=== PATIENT | female | born 1970 | race Caucasian/White ===

== ENCOUNTER 2018-09-27 20:29 | Emergency (ER) | payer BC ==
[~2018-09-27] VITALS: Ht 170.1 cm; Wt 79.4 kg
[2018-09-27] MEDS ORDERED: B121000 MCG/1 IM (20:35)
[2018-09-27] MEDS ORDERED: PHENTERMINE H37.5 M3 PO (20:35)
[2018-09-27] MEDS ORDERED: VOLTAREN100 GM T (21:33)
[2018-09-27] MEDS ORDERED: BENADRYL25 M2 PO (22:43)
[2018-09-27] MEDS ORDERED: PREDNISONE10 MG PO (22:43)
== END 2018-09-27 23:56 | disposition left against medical advice (07) ==
LOC: ED 20:29
DX: R53.1 Weakness (principal); M25.511 Pain in right shoulder; Z88.8 Allergy status to other drugs, medicaments and biological substances; Z79.899 Other long term (current) drug therapy; X50.3XXA Overexertion from repetitive movements, initial encounter; Y93.89 Activity, other specified; Y92.89 Other specified places as the place of occurrence of the external cause; Y99.8 Other external cause status

== ENCOUNTER 2018-09-28 12:01 | Emergency (ER) | payer BC ==
[~2018-09-28] VITALS: Wt 79.4 kg
[~2018-09-28 12:01] MED LIST: B121000 MCG/1 IM; BENADRYL25 M2 PO; PHENTERMINE H37.5 M3 PO; PREDNISONE10 MG PO; VOLTAREN100 GM T
== END 2018-09-28 17:25 | disposition left against medical advice (07) ==
LOC: ED 12:01
DX: M54.2 Cervicalgia (principal); R53.1 Weakness; M25.511 Pain in right shoulder; Z91.041 Radiographic dye allergy status; Z88.2 Allergy status to sulfonamides; Z88.8 Allergy status to other drugs, medicaments and biological substances; Z79.899 Other long term (current) drug therapy

== ENCOUNTER → 2021-07-01 | Outpatient (CLI) | payer BC | END | disposition home or self-care (01) | LOC: LAB 11:53 | PROVIDERS: ATTEND Internal Medicine | DX: R53.82 Chronic fatigue, unspecified (principal); R97.0 Elevated carcinoembryonic antigen [CEA]; R97.8 Other abnormal tumor markers; R97.1 Elevated cancer antigen 125 [CA 125]; R76.0 Raised antibody titer; E60 Dietary zinc deficiency ==

== ENCOUNTER → 2021-12-15 | Outpatient (CLI) | payer BC ==
[2021-12-15 14:48] LABS: BASO % 0.5 % (0.0-1.0); EOS # 0.3 10*3/uL (0.0-0.4); EOS % 3.3 % (1.0-4.0); HEMATOCRIT 41.8 % (37.0-47.0); LYMPH % 23.5 % (27.0-41.0); MEAN CELL VOLUME 93.1 fl (81.0-99.0); MEAN CORPUSCULAR HGB 30.3 pg (27.0-31.0); MEAN CORPUSCULAR HGB CONC 32.5 g/dl (33.0-37.0); MEAN PLATELET VOLUME 8.9 fl (9.6-12.3); MONO # 0.7 10*3/uL (0.1-1.0); MONO % 8.6 % (3.0-9.0); NEUT # 5.5 10*3/uL (2.3-7.9); NEUT % 63.9 % (47.0-73.0); PLATELET COUNT AUTOMATED 397 10*3/uL (130-400); RED BLOOD COUNT 4.49 10*6/uL (4.10-5.10); RED CELL DISTRI WIDTH 13.6 % (0-14.5); WHITE BLOOD COUNT 8.6 10*3/uL (4.8-10.8)
[2021-12-15 15:10] LABS: IRON 62 ug/dL (50-170)
[2021-12-15 16:07] LABS: FERRITIN 13.7 ng/mL (10.0-291.0)
[2021-12-16 12:07] LABS: ANTIPARIETAL CELL ANTIBODY 19.5 Units (0.0-20.0)
[2021-12-16 15:07] LABS: t-TRANSGLUTAMINASE (tTG) IGA <2 U/mL (0-3); t-TRANSGLUTAMINASE (tTG) IgG <2 U/mL (0-5)
[2021-12-18 16:07] LABS: INTRINSIC FACTOR ABS, SERUM 0.9 AU/mL (0.0-1.1)
[2021-12-22 18:06] LABS: DQ2 Negative (.); DQ8 Negative (.)
== END | disposition home or self-care (01) ==
LOC: LAB 14:05
PROVIDERS: ATTEND Internal Medicine
DX: D64.9 Anemia, unspecified (principal)

== ENCOUNTER → 2022-04-29 | Outpatient (CLI) | payer BC ==
[2022-04-29 13:40] LABS: BASO # 0.1 10*3/uL (0.0-0.1); BASO % 0.8 % (0.0-1.0); EOS # 0.4 10*3/uL (0.0-0.4); EOS % 5.7 % (1.0-4.0); LYMPH # 1.9 10*3/uL (1.3-4.4); LYMPH % 23.8 % (27.0-41.0); MEAN CELL VOLUME 92.1 fl (81.0-99.0); MEAN CORPUSCULAR HGB CONC 32.6 g/dl (33.0-37.0); MEAN PLATELET VOLUME 9.4 fl (9.6-12.3); MONO # 0.6 10*3/uL (0.1-1.0); MONO % 7.7 % (3.0-9.0); NEUT # 4.8 10*3/uL (2.3-7.9); NEUT % 61.6 % (47.0-73.0); PLATELET COUNT AUTOMATED 467 10*3/uL (130-400); RED BLOOD COUNT 4.56 10*6/uL (4.10-5.10); RED CELL DISTRI WIDTH 13.7 % (0-14.5); WHITE BLOOD COUNT 7.8 10*3/uL (4.8-10.8)
[2022-04-29 14:00] LABS: ALKALINE PHOSPHATASE 82 U/L (46-116); BUN 13 mg/dl (9-23); CHLORIDE 104 mmol/L (98-107); FREE T4 1.16 ng/dl (0.89-1.76); POTASSIUM 4.1 mmol/L (3.4-5.1); SGPT/ALT 21 U/L (10-49); THYROID STIM HORMONE (HS) 1.559 uIU/ml (0.550-4.780); TOTAL PROTEIN 7.3 gm/dL (6.0-8.0)
[2022-04-29 14:44] LABS: VITAMIN D, 25-HYDROXY 21.8 ng/mL (30-100)
[2022-04-30 08:07] LABS: THYROID PEROXIDASE (TPO) AB 45 IU/mL (0-34)
[2022-04-30 22:06] LABS: THYROGLOBULIN ANTIBODY <1.0 IU/mL (0.0-0.9)
[2022-05-01 01:06] LABS: INSULIN-LIKE GROWTH FACTOR-1 129 ng/mL (70-225)
[2022-05-01 02:06] LABS: IGF BINDING PROTEIN-3 3655 ug/L (2343-5612)
[2022-05-05 19:06] LABS: TESTOSTERONE FREE, (DIRECT) 2.2 pg/mL (0.0-4.2)
== END | disposition home or self-care (01) ==
LOC: LAB 12:53
PROVIDERS: ATTEND Internal Medicine
DX: E11.9 Type 2 diabetes mellitus without complications (principal); E27.49 Other adrenocortical insufficiency; N95.1 Menopausal and female climacteric states; E23.0 Hypopituitarism; E88.9 Metabolic disorder, unspecified; E78.00 Pure hypercholesterolemia, unspecified; R76.0 Raised antibody titer; Z79.4 Long term (current) use of insulin

== ENCOUNTER → 2023-01-29 | Outpatient (CLI) | payer BC ==
[2023-01-29 11:30] LABS: BASO # 0.1 10*3/uL (0.0-0.1); BASO % 1.1 % (0.0-1.0); EOS # 0.6 10*3/uL (0.0-0.4); EOS % 7.7 % (1.0-4.0); HEMATOCRIT 41.5 % (37.0-47.0); LYMPH # 1.9 10*3/uL (1.3-4.4); LYMPH % 26.9 % (27.0-41.0); MEAN CELL VOLUME 92.4 fl (81.0-99.0); MEAN CORPUSCULAR HGB 31.4 pg (27.0-31.0); MEAN PLATELET VOLUME 9.1 fl (9.6-12.3); MONO # 0.7 10*3/uL (0.1-1.0); MONO % 9.2 % (3.0-9.0); NEUT # 3.9 10*3/uL (2.3-7.9); NEUT % 54.7 % (47.0-73.0); PLATELET COUNT AUTOMATED 405 10*3/uL (130-400); RED BLOOD COUNT 4.49 10*6/uL (4.10-5.10); RED CELL DISTRI WIDTH 13.1 % (0-14.5); WHITE BLOOD COUNT 7.2 10*3/uL (4.8-10.8)
[2023-01-29 12:06] LABS: ALKALINE PHOSPHATASE 88 U/L (46-116); BUN 12 mg/dl (9-23); CHLORIDE 107 mmol/L (98-107); CHOLESTEROL 160 mg/dL (<200); LDL CHOLESTEROL 67 mg/dL (9-159); POTASSIUM 4.2 mmol/L (3.4-5.1); SGPT/ALT 13 U/L (5-49); TOTAL PROTEIN 6.5 gm/dL (6.0-8.0); TRIGLYCERIDES 145 mg/dl (<150); URIC ACID 4.8 mg/dL (3.1-7.8)
[2023-01-29 12:07] LABS: VITAMIN D, 25-HYDROXY 71.5 ng/mL (30-100)
== END | disposition home or self-care (01) ==
LOC: LAB 10:48
PROVIDERS: ATTEND Internal Medicine
DX: E11.9 Type 2 diabetes mellitus without complications (principal); D50.8 Other iron deficiency anemias; E54 Ascorbic acid deficiency; R53.82 Chronic fatigue, unspecified; E23.0 Hypopituitarism; N95.1 Menopausal and female climacteric states; E03.9 Hypothyroidism, unspecified; E55.9 Vitamin D deficiency, unspecified; M81.0 Age-related osteoporosis without current pathological fracture; E63.0 Essential fatty acid [EFA] deficiency; E78.9 Disorder of lipoprotein metabolism, unspecified; E72.11 Homocystinuria

== ENCOUNTER → 2023-02-05 | Outpatient (CLI) | payer BC ==
[2023-02-06 08:06] LABS: THYROID PEROXIDASE (TPO) AB 41 IU/mL (0-34)
[2023-02-07 15:06] LABS: THYROGLOBULIN ANTIBODY <1.0 IU/mL (0.0-0.9)
== END | disposition home or self-care (01) ==
LOC: LAB 10:29
PROVIDERS: ATTEND Internal Medicine
DX: E11.9 Type 2 diabetes mellitus without complications (principal); E79.0 Hyperuricemia without signs of inflammatory arthritis and tophaceous disease; D53.8 Other specified nutritional anemias; R53.82 Chronic fatigue, unspecified; E23.0 Hypopituitarism; E03.9 Hypothyroidism, unspecified; N95.1 Menopausal and female climacteric states; E88.9 Metabolic disorder, unspecified; E63.0 Essential fatty acid [EFA] deficiency; M81.0 Age-related osteoporosis without current pathological fracture; E78.00 Pure hypercholesterolemia, unspecified